=== PATIENT | male | born 1990 | race Caucasian/White ===

== ENCOUNTER 2018-07-28 12:51 | Observation (INO) | payer BC ==
[2018-07-28] MEDS ORDERED: ASPIRIN 81 MG PO STA (13:33)
[2018-07-28] MEDS ORDERED: NITROGLYCERIN OINT 1 INCH/GM PACKET TOPICAL STA (13:33)
--- NOTE | 2018-07-28 13:37 | ED ---
General Adult HPI - General Chief complaint: Recheck/Abnormal Lab/Rx Stated complaint: high blood pressure, "chest issues" Time Seen by Provider: 07/28/18 13:07 Source: patient, RN notes reviewed Mode of arrival: ambulatory Limitations: no limitations - History of Present Illness Initial comments: Patient is a pleasant 28-year-old male presenting to the emergency department with concerns for high blood pressure. Patient is somewhat hesitant to provide history. Family is present and helps provide. Patient does have a history of hypertension and has been on hydrochlorothiazide however has been out of this for the past couple of weeks. Previously patient did have chest discomfort that was controlled with hydrochlorothiazide. Patient has been under more stress the last couple of weeks and has been having some discomfort in his chest. No discomfort at this time. No associated dyspnea or diaphoresis or nausea. Patient did go to urgent care and found high blood pressure and was recommended to come to the emergency department. - Related Data Home Medications Medication Instructions Recorded Confirmed Aspirin 650 mg PO DAILY 07/28/18 07/28/18 Hydrochlorothiazide 12.5 mg PO DAILY 07/28/18 07/28/18 Multivitamins, Thera [Multivitamin 1 tab PO DAILY 07/28/18 07/28/18 (formulary)] [place]-3 Fatty Acids/Fish Oil [Fish 1 tab PO DAILY 07/28/18 07/28/18 Oil 1,000 mg Softgel] Allergies Allergy/AdvReac Type Severity Reaction Status Date / Time No Known Allergies Allergy Verified 07/28/18 14:31 Review of Systems ROS Statement: Those systems with pertinent positive or pertinent negative responses have been documented in the HPI. ROS Other: All systems not noted in ROS Statement are negative. Constitutional: Denies: fever Eyes: Denies: eye pain ENT: Denies: ear pain Respiratory: Denies: cough, dyspnea Cardiovascular: Reports: chest pain (With radiation to left arm) Endocrine: Denies: fatigue Gastrointestinal: Denies: abdominal pain Genitourinary: Denies: dysuria Musculoskeletal: Denies: back pain Skin: Denies: rash Neurological: Denies: weakness Psychiatric: Reports: anxiety Past Medical History Past Medical History: Hypertension History of Any Multi-Drug Resistant Organisms: None Reported Past Surgical History: No Surgical Hx Reported Past Psychological History: No Psychological Hx Reported Smoking Status: Never smoker Past Alcohol Use History: None Reported Past Drug Use History: Marijuana General Exam Limitations: no limitations General appearance: alert, in no apparent distress Head exam: Present: atraumatic Eye exam: Present: normal appearance, PERRL ENT exam: Present: normal oropharynx Neck exam: Present: normal inspection Respiratory exam: Present: normal lung sounds bilaterally. Absent: chest wall tenderness Cardiovascular Exam: Present: regular rate, normal rhythm Expanded Peripheral pulses: 2+: Radial (R), Radial (L), Dorsalis Pedis (R), Dorsalis Pedis (L) GI/Abdominal exam: Present: soft. Absent: tenderness Extremities exam: Present: normal inspection. Absent: pedal edema, calf tenderness Neurological exam: Present: alert Psychiatric exam: Present: normal affect, normal mood Skin exam: Present: normal color Course Vital Signs 07/28/18 07/28/18 07/28/18 12:58 13:28 14:30 Temperature 99.3 F Pulse Rate 80 88 89 Respiratory 18 18 16 Rate Blood Pressure 163/98 142/90 136/80 O2 Sat by Pulse 99 98 97 Oximetry 07/28/18 07/28/18 15:00 15:30 Temperature Pulse Rate 90 93 Respiratory 16 16 Rate Blood Pressure 138/78 131/81 O2 Sat by Pulse 95 95 Oximetry EKG Findings - EKG Comments: EKG Findings:: Normal sinus rhythm 76. SC 154. QRS 98. QT 384. QTC 432. Normal axis. Normal QRS. No acute ST change. Medical Decision Making - Medical Decision Making Patient reevaluated and improved. Case discussed in detail with Dr. Perez, covering for Dr. Werner, who will admit. He did come evaluate the patient. - Lab Data Result diagrams: 07/28/18 13:50 07/28/18 13:50 Lab Results 07/28/18 07/28/18 07/28/18 Range/Units 13:50 13:50 13:50 WBC 11.2 H (3.8-10.6) k/uL RBC 5.37 (4.30-5.90) m/uL Hgb 16.4 (13.0-17.5) gm/dL Hct 48.4 (39.0-53.0) % MCV 90.1 (80.0-100.0) fL MCH 30.5 (25.0-35.0) pg MCHC 33.9 (31.0-37.0) g/dL RDW 12.5 (11.5-15.5) % Plt Count 270 (150-450) k/uL Neutrophils % 87 % Lymphocytes % 8 % Monocytes % 3 % Eosinophils % 1 % Basophils % 0 % Neutrophils # 9.7 H (1.3-7.7) k/uL Lymphocytes # 0.9 L (1.0-4.8) k/uL Monocytes # 0.4 (0-1.0) k/uL Eosinophils # 0.1 (0-0.7) k/uL Basophils # 0.0 (0-0.2) k/uL PT (9.0-12.0) sec INR (<1.2) APTT (22.0-30.0) sec D-Dimer (<0.60) mg/L FEU Sodium 140 (137-145) mmol/L Potassium 4.5 (3.5-5.1) mmol/L Chloride 105 (98-107) mmol/L Carbon Dioxide 26 (22-30) mmol/L Anion Gap 9 mmol/L BUN 9 (9-20) mg/dL Creatinine 0.69 (0.66-1.25) mg/dL Est GFR (CKD-EPI)AfAm >90 (>60 ml/min/1.73 sqM) Est GFR (CKD-EPI)NonAf >90 (>60 ml/min/1.73 sqM) Glucose 103 H (74-99) mg/dL Calcium 9.6 (8.4-10.2) mg/dL Magnesium 1.9 (1.6-2.3) mg/dL Total Bilirubin 0.6 (0.2-1.3) mg/dL AST 41 (17-59) U/L ALT 54 (21-72) U/L Alkaline Phosphatase 74 (38-126) U/L Total Creatine Kinase 208 H (55-170) U/L CK-MB (CK-2) 0.9 (0.0-2.4) ng/mL CK-MB (CK-2) Rel Index 0.4 Troponin I <0.012 (0.000-0.034) ng/mL Total Protein 7.4 (6.3-8.2) g/dL Albumin 4.2 (3.5-5.0) g/dL 07/28/18 Range/Units 13:50 WBC (3.8-10.6) k/uL RBC (4.30-5.90) m/uL Hgb (13.0-17.5) gm/dL Hct (39.0-53.0) % MCV (80.0-100.0) fL MCH (25.0-35.0) pg MCHC (31.0-37.0) g/dL RDW (11.5-15.5) % Plt Count (150-450) k/uL Neutrophils % % Lymphocytes % % Monocytes % % Eosinophils % % Basophils % % Neutrophils # (1.3-7.7) k/uL Lymphocytes # (1.0-4.8) k/uL Monocytes # (0-1.0) k/uL Eosinophils # (0-0.7) k/uL Basophils # (0-0.2) k/uL PT 10.2 (9.0-12.0) sec INR 0.9 (<1.2) APTT 26.5 (22.0-30.0) sec D-Dimer 0.31 (<0.60) mg/L FEU Sodium (137-145) mmol/L Potassium (3.5-5.1) mmol/L Chloride (98-107) mmol/L Carbon Dioxide (22-30) mmol/L Anion Gap mmol/L BUN (9-20) mg/dL Creatinine (0.66-1.25) mg/dL Est GFR (CKD-EPI)AfAm (>60 ml/min/1.73 sqM) Est GFR (CKD-EPI)NonAf (>60 ml/min/1.73 sqM) Glucose (74-99) mg/dL Calcium (8.4-10.2) mg/dL Magnesium (1.6-2.3) mg/dL Total Bilirubin (0.2-1.3) mg/dL AST (17-59) U/L ALT (21-72) U/L Alkaline Phosphatase (38-126) U/L Total Creatine Kinase (55-170) U/L CK-MB (CK-2) (0.0-2.4) ng/mL CK-MB (CK-2) Rel Index Troponin I (0.000-0.034) ng/mL Total Protein (6.3-8.2) g/dL Albumin (3.5-5.0) g/dL - Radiology Data Radiology results: image reviewed (Chest x-ray reveals no acute process) Disposition Clinical Impression: Chest pain, Hypertension Disposition: ADMITTED IP TO THIS HOSP Is patient prescribed a controlled substance at d/c from ED?: No Referrals: Karyn Overton MD [Primary Care Provider] - 1-2 days Decision Time: 16:01
[2018-07-28 14:21] LABS: Basophils % (A) 0 %; Eosinophils # (A) 0.1 k/uL (0-0.7); Eosinophils % (A) 1 %; HCT 48.4 % (39.0-53.0); HGB 16.4 gm/dL (13.0-17.5); Lymphocytes # (A) 0.9 k/uL (1.0-4.8); Lymphocytes % (A) 8 %; MCH 30.5 pg (25.0-35.0); MCHC 33.9 g/dL (31.0-37.0); MCV 90.1 fL (80.0-100.0); Mean Platelet Volume 6.7; Monocytes # (A) 0.4 k/uL (0-1.0); Monocytes % (A) 3 %; Neutrophils # (A) 9.7 k/uL (1.3-7.7); Neutrophils % (A) 87 %; Platelet Count 270 k/uL (150-450); RBC 5.37 m/uL (4.30-5.90); RDW 12.5 % (11.5-15.5); WBC 11.2 k/uL (3.8-10.6)
--- NOTE | 2018-07-28 14:21 | XR ---
EXAMINATION TYPE: XR chest 2V DATE OF EXAM: 07/28/2018 COMPARISON: NONE HISTORY: Chest pain TECHNIQUE: Frontal and lateral views of the chest are obtained. FINDINGS: There is no focal air space opacity, pleural effusion, or pneumothorax seen. The cardiac silhouette size is within normal limits. The osseous structures are intact. There are overlying car diac leads. IMPRESSION: No acute cardiopulmonary process.
[2018-07-28 14:34] LABS: ALT 54 U/L (21-72); AST 41 U/L (17-59); Albumin 4.2 g/dL (3.5-5.0); Alkaline Phosphatase 74 U/L (38-126); Anion Gap 9 mmol/L; Blood Urea Nitrogen 9 mg/dL (9-20); Calcium 9.6 mg/dL (8.4-10.2); Carbon Dioxide 26 mmol/L (22-30); Chloride 105 mmol/L (98-107); D-Dimer 0.31 mg/L FEU (<0.60); Glucose 103 mg/dL (74-99); INR 0.9 (<1.2); Magnesium 1.9 mg/dL (1.6-2.3); Partial Thromboplastin Time 26.5 sec (22.0-30.0); Potassium 4.5 mmol/L (3.5-5.1); Prothrombin Time 10.2 sec (9.0-12.0); Sodium 140 mmol/L (137-145); Total Bilirubin 0.6 mg/dL (0.2-1.3); Total Protein 7.4 g/dL (6.3-8.2)
[2018-07-28] MEDS ORDERED: ACETAMINOPHEN TAB 325 MG TAB PO STA (14:37)
[2018-07-28 14:45] LABS: Creatine Kinase 208 U/L (55-170)
[2018-07-28] MEDS ORDERED: ATENOLOL 25 MG TAB PO STA (14:47)
[2018-07-28 14:59] LABS: Creatine Kinase MB 0.9 ng/mL (0.0-2.4); Troponin I <0.012 ng/mL (0.000-0.034)
[2018-07-28] MEDS ORDERED: NITROGLYCERIN SL TABS 0.4 MG TAB SUBLINGUAL PRN (16:01)
[2018-07-28 16:18] VITALS: RESP 18
--- NOTE | 2018-07-28 16:26 | P.HPIM ---
History of Present Illness H&P Date: 07/28/18 Chief Complaint: Chest pain This is a 28-year-old male patient of Dr. Overton. She presented to the emergency room with complaints of chest pain that radiated down to left arm. Patient also complaining of high blood pressure. Patient does have a known medical history of hypertension which she takes hydrochlorothiazide but has been off the past couple weeks. Patient does report he's been under more stress over the last couple weeks and has been having intermittent chest discomfort. Patient denies any nausea or vomiting with episodes. Patient denies any shortness of breath. Patient does have a significant family history of grandfather requiring coronary artery bypass graft surgery. Patient does state he used to smoke but has stopped many years ago. Does report that he smokes marijuana. Patient does report occasional alcohol use. Patient does report that he has had EKG completed by is primary care provider but denies any history of 2-D echo or stress test being completed. Blood Pressure currently well-controlled. EKG completed showing normal sinus rhythm with sinus arrhythmia. Normal EKG. Chest x-ray completed completed showing no acute cardiopulmonary process. At this time patient denies chest pain or shortness breath. Patient denies any urinary burning or frequency. Patient denies nausea vomiting or diarrhea. Review of Systems Please refer to HPI otherwise unremarkable Past Medical History Past Medical History: Hypertension History of Any Multi-Drug Resistant Organisms: None Reported Past Surgical History: No Surgical Hx Reported Past Psychological History: No Psychological Hx Reported Smoking Status: Never smoker Past Alcohol Use History: None Reported Past Drug Use History: Marijuana Medications and Allergies Home Medications Medication Instructions Recorded Confirmed Type Aspirin 650 mg PO DAILY 07/28/18 07/28/18 History Hydrochlorothiazide 12.5 mg PO DAILY 07/28/18 07/28/18 History Multivitamins, Thera [Multivitamin 1 tab PO DAILY 07/28/18 07/28/18 History (formulary)] [place]-3 Fatty Acids/Fish Oil [Fish 1 tab PO DAILY 07/28/18 07/28/18 History Oil 1,000 mg Softgel] Allergies Allergy/AdvReac Type Severity Reaction Status Date / Time No Known Allergies Allergy Verified 07/28/18 14:31 Physical Exam Vitals: Vital Signs Temp Pulse Resp BP Pulse Ox 07/28/18 15:30 93 16 131/81 95 07/28/18 15:00 90 16 138/78 95 12/05/18 14:30 89 16 136/80 97 07/28/18 13:28 88 18 142/90 98 07/28/18 12:58 99.3 F 80 18 163/98 99 Intake and Output 07/28/18 07/28/18 07/28/18 06:59 14:59 22:59 Other: Weight 154.675 kg Head normocephalic Neck supple Lungs clear to auscultation bilaterally no wheezing or crackles Heart regular rate and rhythm S1-S2, no rub or gallop Abdomen is soft nontender nondistended positive bowel sounds no hepatosplenomegaly Extremities no edema Neuro alert and orientated to 3 Results CBC & Chem 7: 07/28/18 13:50 07/28/18 13:50 Labs: Abnormal Lab Results - Last 24 Hours (Table) 07/28/18 07/28/18 07/28/18 Range/Units 13:50 13:50 13:50 WBC 11.2 H (3.8-10.6) k/uL Neutrophils # 9.7 H (1.3-7.7) k/uL Lymphocytes # 0.9 L (1.0-4.8) k/uL Glucose 103 H (74-99) mg/dL Total Creatine Kinase 208 H (55-170) U/L Assessment and Plan Assessment: 1. Chest pain. Initial troponin negative. EKG showing normal sinus rhythm with sinus arrhythmia. Chest x-ray completed showing no acute cardiopulmonary process. Cardiology services have been consulted. Lipid panel ordered. Cardiac enzymes ordered 2. essential hypertension. Patient managed on hydrochlorothiazide 3. Leukocytosis. Blood cell 11.2. Patient denies any complaints at this time. Will order recheck in a.m. 4. Obesity. BMI 43.8 5. Marijuana use Time with Patient: Greater than 30 (Greater than 60% of the total time spent in counseling and coordination of care. I performed an examination of the patient and discussed their management with the Nurse Practitioner. I have reviewed the Nurse Practitioner's notes and agree with the documented findings and plan of care)
[2018-07-28] MEDS ORDERED: ACETAMINOPHEN TAB 325 MG TAB PO PRN (18:56)
[2018-07-28 19:29] LABS: Creatine Kinase 185 U/L (55-170)
[2018-07-28 19:42] LABS: Creatine Kinase MB 0.8 ng/mL (0.0-2.4); Troponin I <0.012 ng/mL (0.000-0.034)
[2018-07-28] MEDS: NITROGLYCERIN OINT 1 INCH/GM PACKET TOPICAL SCH (20:26)
[2018-07-29] MEDS: NITROGLYCERIN OINT 1 INCH/GM PACKET TOPICAL SCH ×2 (00:57→05:44)
[2018-07-29 02:20] LABS: Basophils % (A) 0 %; Eosinophils # (A) 0.2 k/uL (0-0.7); Eosinophils % (A) 2 %; HCT 46.5 % (39.0-53.0); HGB 15.3 gm/dL (13.0-17.5); Lymphocytes % (A) 27 %; MCH 29.7 pg (25.0-35.0); MCV 90.2 fL (80.0-100.0); Monocytes # (A) 0.6 k/uL (0-1.0); Monocytes % (A) 5 %; Neutrophils # (A) 7.3 k/uL (1.3-7.7); Neutrophils % (A) 65 %; Platelet Count 248 k/uL (150-450); RBC 5.16 m/uL (4.30-5.90); RDW 12.5 % (11.5-15.5); WBC 11.3 k/uL (3.8-10.6)
[2018-07-29 02:34] LABS: ALT 47 U/L (21-72); AST 39 U/L (17-59); Albumin 3.9 g/dL (3.5-5.0); Alkaline Phosphatase 58 U/L (38-126); Anion Gap 9 mmol/L; Blood Urea Nitrogen 8 mg/dL (9-20); Calcium 9.5 mg/dL (8.4-10.2); Carbon Dioxide 25 mmol/L (22-30); Chloride 107 mmol/L (98-107); Cholesterol 154 mg/dL (<200); Glucose 97 mg/dL (74-99); HDL Cholesterol 37 mg/dL (40-60); LDL Cholesterol,Calculated 100 mg/dL (0-99); Potassium 4.4 mmol/L (3.5-5.1); Sodium 141 mmol/L (137-145); Total Bilirubin 0.6 mg/dL (0.2-1.3); Total Protein 6.9 g/dL (6.3-8.2); Triglycerides 86 mg/dL (<150)
[2018-07-29 02:39] LABS: Creatine Kinase 179 U/L (55-170)
[2018-07-29 02:52] LABS: Creatine Kinase MB 0.8 ng/mL (0.0-2.4); Troponin I <0.012 ng/mL (0.000-0.034)
--- NOTE | 2018-07-29 07:47 | CONS ---
CONSULTATION Mr. Luna is a 28-year-old male with a known history of hypertension who has not been taking his hydrochlorothiazide, history of marijuana use, who presented to the emergency room with symptoms of chest discomfort and left arm tingling. His discomfort started the night before last after he had a BLT. It was not associated with any significant dyspnea, dizziness or palpitation. The patient denies any prior cardiac history. He is not very active physically. He has no history of PND, orthopnea, or peripheral edema. No dizziness, palpitation, or syncope. His coronary risk factors are remarkable for history of hypertension. He is nondiabetic. No documented hyperlipidemia. His medications were none at home. He was supposed to take hydrochlorothiazide. REVIEW OF SYSTEMS: RESPIRATORY SYSTEM: He has no recent wheezing or cough. No history of obstructive lung disease. GI SYSTEM: No recent GI bleeding. No peptic ulcer disease. SYSTEM: No dysuria or hematuria. NERVOUS SYSTEM: No stroke or seizure. PHYSICAL EXAMINATION: He is a 28-year-old male, alert, oriented, in no apparent distress. Overweight. Blood pressure 143/80 with the heart rate in the 70s. HEAD: Normocephalic. EYES: Sclerae anicteric. NECK: Good carotid upstroke. No bruit. No jugular venous distention. LUNGS: Clear to auscultation. HEART: Regular rate and rhythm. S1, S2. No S3. No S4. No murmur or rub. ABDOMEN: Soft, nontender, obese. Positive bowel sounds. No organomegaly. EXTREMITIES: No edema. Intact distal pulses. LAB DATA: Lab data revealed troponin less than 0.012 for 3 samples. BUN and creatinine of 8 and 0.69. Cholesterol 154 with an LDL of 100. Hemoglobin 15.3, white blood cell of 11.3. EKG revealed a sinus mechanism, normal axis and intervals with no acute changes. Chest x-ray shows no acute infiltrate. IMPRESSION: 1. Chest discomfort atypical for ischemic heart disease probably noncardiac. 2. Hypertension. 3. Obesity. 4. History of marijuana use. RECOMMENDATION: I would recommend to proceed with stress echocardiogram and a transthoracic echo. If there is no evidence of inducible ischemia then no further cardiac workup will be needed. Thank you for this consult. We will follow with you. MMODL / IJN: [id number] /
[2018-07-29] MEDS ORDERED: HYDROCHLOROTHIAZIDE 12.5 MG CAP PO SCH (09:00)
[2018-07-29] MEDS ORDERED: HYDROCHLOROTHIAZIDE 25 MG TAB PO SCH (09:00)
[2018-07-29] MEDS ORDERED: ASPIRIN 325 MG TAB PO SCH (09:00)
--- NOTE | 2018-07-29 11:11 | ECHOF ---
Referral Reason:cp MEASUREMENTS -------- HEIGHT: 182.9 cm WEIGHT: 152.4 kg BP: 143/87 RVIDd: 3.9 cm (< 3.3) IVSd: 1.4 cm (0.6 - 1.1) LVIDd: 4.9 cm (3.9 - 5.3) LVPWd: 1.3 cm (0.6 - 1.1) IVSs: 1.5 cm LVIDs: 3.1 cm LVPWs: 1.5 cm LA Diam: 3.5 cm (2.7 - 3.8) LAESV Index (A-L): 15.17 ml/m Ao Diam: 3.3 cm (2.0 - 3.7) AV Cusp: 2.3 cm (1.5 - 2.6) LA Diam: 3.7 cm (2.7 - 3.8) MV EXCURSION: 23.254 mm (> 18.000) MV EF SLOPE: 118 mm/s (70 - 150) EPSS: 0.1 cm MV E Tu: 0.79 m/s MV DecT: 214 ms MV A Tu: 0.72 m/s MV E/A Ratio: 1.11 RAP: 5.00 mmHg RVSP: 15.08 mmHg FINDINGS -------- Sinus rhythm. This was a technically difficult study with suboptimal views. This was a techncally difficult study with suboptimal views, , Definity utilized for enhancement of images. The left ventricular size is normal. There is moderate concentric left ventricular hypertrophy. O verall left ventricular systolic function is normal with, an EF between 55 - 60 %. The right ventricle is moderately enlarged. The left atrial size is normal. The right atrial size is normal. xx ml of Lumason was utilized for enhancement of images. The aortic valve is trileaflet, and appears structurally normal. No aortic stenosis or regurgitation. The mitral valve is normal. Mild mitral regurgitation is present. Mild tricuspid regurgitation present. Right ventricular systolic pressure is normal at < 35 mmHg. The right ventricular systolic pressure, as measured by Doppler, is 15.08mmHg. The pulmonic valve was not well visualized. There is no pulmonic regurgitation present. The aortic root size is normal. There is no pericardial effusion. CONCLUSIONS -------- 1. Sinus rhythm. 2. This was a techncally difficult study with suboptimal views, , Definity utilized for enhancement o f images. 3. The left ventricular size is normal. 4. There is moderate concentric left ventricular hypertrophy. 5. Overall left ventricular systolic function is normal with, an EF between 55 - 60 %. 6. The right ventricle is moderately enlarged. 7. The left atrial size is normal. 8. xx ml of Lumason was utilized for enhancement of images. 9. The aortic valve is trileaflet, and appears structurally normal. No aortic stenosis or regurgitati on. 10. Mild mitral regurgitation is present. 11. Mild tricuspid regurgitation present. 12. Right ventricular systolic pressure is normal at < 35 mmHg. 13. The pulmonic valve was not well visualized. 14. There is no pulmonic regurgitation present. 15. The aortic root size is normal. 16. There is no pericardial effusion. OAKES MACHINE OPERATOR: Mary Padilla RDCS
[2018-07-29 11:51] VITALS: BP 139/96; PULSE 109; TEMP 98.1
--- NOTE | 2018-07-29 13:44 | ECHOS ---
STRESS ECHOCARDIOGRAM DATE OF SERVICE: 07/29/2018 INDICATIONS: Chest pain. MEDICATIONS: BASELINE HEART RATE: 84 BASELINE BLOOD PRESSURE: 136/81 MAXIMUM HEART RATE: 170 MAXIMUM BLOOD PRESSURE: 178/58 85% MPHR: 162 100% MPHR: 191 METS: 9.0 MAXIMUM STAGE REACHED: II TOTAL EXERCISE TIME: 8 minutes 6 seconds CLINICAL INFORMATION: Baseline rhythm is sinus mechanism, rate of 84, normal axis and intervals, normal electrocardiogram. Baseline blood pressure 136/81 mmHg. Patient exercised on Andrey protocol for 8 minutes 6 seconds reaching a peak rate of 170 beats per minute which is equal to 89% maximum predicted heart rate. Peak blood pressure 178/58 mmHg. Test was terminated secondary to fatigue. There is no chest pain. Electrocardiograph monitoring revealed no evidence of diagnostic ischemic ST deviation. Baseline echocardiogram revealed normal wall thickening and motion. At peak exercise, there was normal wall motion augmentation with no hypokinesis or dyskinesis. CONCLUSION: 1. Average exercise tolerance with normal electrocardiograph response to exercise. 2. Normal stress echocardiogram with no evidence of stress induced ischemia. MMODL / IJN: [id number] /
--- NOTE | 2018-07-29 14:10 | P.DS ---
Providers Date of admission: 07/28/18 16:01 Expected date of discharge: 07/29/18 Attending physician: Manuel Perez Consults: 07/28/18 16:01 Consult Physician Urgent Consulting Provider: oJhn Espinoza Consult Reason/Comments: cp, htn Do you want consulting provider notified?: Yes Primary care physician: Karyn Overton Hospital Course: Discharge diagnosis 1. Chest pain. Initial troponin negative. EKG showing normal sinus rhythm with sinus arrhythmia. Chest x-ray completed showing no acute cardiopulmonary process. Cardiology services have been consulted. Lipid panel ordered. troponins negative. Chest was completed showing average exercise tolerance with normal electrocardiographic response to exercise. Normal stress echocardiogram with no evidence of stress-induced ischemia. Discussed with cardiology services. Patient has been cleared for discharge 2. essential hypertension. Patient managed on hydrochlorothiazide 3. Leukocytosis. Blood cell 11.2. Patient denies any complaints at this time. White blood cell 11.3. At this time patient denies any signs or symptoms of infection. Patient advised to follow-up closely with PCP in regards to any signs that might appear 4. Obesity. BMI 43.8 5. Marijuana use Hospital Course This is a 28-year-old male patient of Dr. Overton. She presented to the emergency room with complaints of chest pain that radiated down to left arm. Patient also complaining of high blood pressure. Patient does have a known medical history of hypertension which she takes hydrochlorothiazide but has been off the past couple weeks. Patient does report he's been under more stress over the last couple weeks and has been having intermittent chest discomfort. Patient denies any nausea or vomiting with episodes. Patient denies any shortness of breath. Patient does have a significant family history of grandfather requiring coronary artery bypass graft surgery. Patient does state he used to smoke but has stopped many years ago. Does report that he smokes marijuana. Patient does report occasional alcohol use. Patient does report that he has had EKG completed by is primary care provider but denies any history of 2-D echo or stress test being completed. Blood Pressure currently well-controlled. EKG completed showing normal sinus rhythm with sinus arrhythmia. Normal EKG. Chest x-ray completed completed showing no acute cardiopulmonary process. At this time patient denies chest pain or shortness breath. Patient denies any urinary burning or frequency. Patient denies nausea vomiting or diarrhea. Stress test completed patient has been cleared for discharge from cardiology cardiology. Will order repeat CBC in 1 week to assess WBC. Advised patient to follow-up closely with PCP. At this time patient denies chest pain or shortness breath. Patient denies nausea vomiting or diarrhea. Patient denies any urinary burning or frequency. I performed an examination of the patient and discussed their management with the Nurse Practitioner. I have reviewed the Nurse Practitioner's notes and agree with the documented findings and plan of care Patient Condition at Discharge: Stable Plan - Discharge Summary Discharge Rx Participant: No New Discharge Prescriptions: No Action [place]-3 Fatty Acids/Fish Oil [Fish Oil 1,000 mg Softgel] 1 tab PO DAILY Multivitamins, Thera [Multivitamin (formulary)] 1 tab PO DAILY Aspirin 650 mg PO DAILY Hydrochlorothiazide 12.5 mg PO DAILY Discharge Medication List Aspirin 650 mg PO DAILY 07/28/18 [History] Hydrochlorothiazide 12.5 mg PO DAILY 07/28/18 [History] Multivitamins, Thera [Multivitamin (formulary)] 1 tab PO DAILY 07/28/18 [History ] [place]-3 Fatty Acids/Fish Oil [Fish Oil 1,000 mg Softgel] 1 tab PO DAILY [History] Follow up Appointment(s)/Referral(s): Karyn Overton MD [Primary Care Provider] - 1-2 days
== END 2018-07-29 14:30 | disposition home or self-care (01) ==
LOC: EC 12:51 → INTOOBSV 16:01 → 1SOBS 16:01
PROVIDERS: ADMIT Internal Medicine; ATTEND Internal Medicine
DX: R07.89 Other chest pain (principal); I10 Essential (primary) hypertension; E66.9 Obesity, unspecified; Z68.41 Body mass index [BMI] 40.0-44.9, adult; D72.829 Elevated white blood cell count, unspecified; F12.90 Cannabis use, unspecified, uncomplicated; T50.2X6A Underdosing of carbonic-anhydrase inhibitors, benzothiadiazides and other diuretics, initial encounter; Z82.49 Family history of ischemic heart disease and other diseases of the circulatory system; Z87.891 Personal history of nicotine dependence; Z79.82 Long term (current) use of aspirin
CPT/HCPCS: 99284; 36415; 93005; 93306; 93351; 85379; 80061; 80053 ×2; 82550 ×2; 82553 ×2; 83735; 84484 ×2; 85025 ×2; 85610; 85730; 71046; G0378 ×2; Q9950

== ENCOUNTER → 2019-01-24 | Outpatient (CLI) | payer MEDICAID ==
--- NOTE | 2019-01-24 10:01 | US ---
EXAMINATION TYPE: US liver DATE OF EXAM: 01/24/2019 COMPARISON: NONE CLINICAL HISTORY: I51.7 Cardiomegaly. Elevated liver enzymes. EXAM MEASUREMENTS: Liver Length: 17.4 cm Gallbladder Wall: 0.2 cm CBD: 0.6 cm Right Kidney: 11.5 x 6.1 x 6.8 cm Pancreas: Obscured by bowel gas Liver: There is diffusely heterogenous echotexture of the hepatic parenchyma with diminished visuali zation of the portal triads most commonly relating to hepatic steatosis and limiting evaluation for u nderlying hepatic masses. Gallbladder: No stones seen Evidence for sonographic Encarnacion's sign: no CBD: wnl Right Kidney: No hydronephrosis or masses seen IMPRESSION: Diffusely heterogenous hepatic echotexture, most commonly relates to hepatic steatosis al though can be seen in other etiologies such as hepatitis or congestive colopathy given the provided h istory of cardiomegaly. Correlate with liver function tests results.
--- NOTE | 2019-02-02 11:33 | ECHOF ---
Referral Reason:I51.7 Cardiomegaly MEASUREMENTS -------- HEIGHT: 188.0 cm WEIGHT: 145.1 kg BP: 158/74 RVIDd: 3.5 cm (< 3.3) IVSd: 1.4 cm (0.6 - 1.1) LVIDd: 4.4 cm (3.9 - 5.3) LVPWd: 1.4 cm (0.6 - 1.1) IVSs: 1.7 cm LVIDs: 2.9 cm LVPWs: 1.9 cm LA Diam: 3.7 cm (2.7 - 3.8) LAESV Index (A-L): 18.48 ml/m Ao Diam: 3.2 cm (2.0 - 3.7) AV Cusp: 2.4 cm (1.5 - 2.6) MV EXCURSION: 19.436 mm (> 18.000) MV EF SLOPE: 118 mm/s (70 - 150) EPSS: 0.4 cm MV E Tu: 1.26 m/s MV DecT: 234 ms MV A Tu: 0.86 m/s MV E/A Ratio: 1.47 RAP: 5.00 mmHg RVSP: 24.48 mmHg FINDINGS -------- Sinus rhythm. This was a technically adequate study. The left ventricular size is normal. There is moderate concentric left ventricular hypertrophy. O verall left ventricular systolic function is normal with, an EF between 60 - 65 %. The right ventricle is mildly enlarged. Normal LA size by volume 22+/-6 ml/m2. The right atrium is normal in size. Interatrial and interventricular septum intact. The aortic valve is trileaflet and appears structurally normal. The mitral valve is normal. Mild tricuspid regurgitation present. Right ventricular systolic pressure is normal at < 35 mmHg. Trace/mild (physiologic) pulmonic regurgitation. The aortic root size is normal. Normal inferior vena cava with normal inspiratory collapse consistent with estimated right atrial pre ssure of 5 mmHg. There is no pericardial effusion. CONCLUSIONS -------- 1. Sinus rhythm. 2. This was a technically adequate study. 3. The left ventricular size is normal. 4. There is moderate concentric left ventricular hypertrophy. 5. Overall left ventricular systolic function is normal with, an EF between 60 - 65 %. 6. The right ventricle is mildly enlarged. 7. Normal LA size by volume 22+/-6 ml/m2. 8. The right atrium is normal in size. 9. Interatrial and interventricular septum intact. 10. The aortic valve is trileaflet and appears structurally normal. 11. The mitral valve is normal. 12. Mild tricuspid regurgitation present. 13. Right ventricular systolic pressure is normal at < 35 mmHg. 14. Trace/mild (physiologic) pulmonic regurgitation. 15. The aortic root size is normal. 16. Normal inferior vena cava with normal inspiratory collapse consistent with estimated right atrial pressure of 5 mmHg. 17. There is no pericardial effusion. BOTTOM HOOP DRIVER: Faina Rasmussen RDCS
== END | disposition home or self-care (01) ==
LOC: RADUSWWP 09:22
PROVIDERS: ATTEND Family Medicine
DX: R93.2 Abnormal findings on diagnostic imaging of liver and biliary tract (principal); I07.1 Rheumatic tricuspid insufficiency; I37.1 Nonrheumatic pulmonary valve insufficiency; R74.8 Abnormal levels of other serum enzymes
CPT/HCPCS: 76705; 93306

== ENCOUNTER 2021-01-11 06:05 | Day surgery (SDC) | payer MEDICAID, OTHER ==
[2021-01-09 09:17] VITALS: BMI 36.9
[~2021-01-11 06:05] MED LIST: DEXAMETHASONE SOD PHOSPHATE 4 MG/ML 1 ML VIAL IV ONE; HEPARIN SODIUM,PORCINE/PF 5,000 UNIT/0.5 ML SYRINGE SQ PRN; LACTATED RINGERS 1,000 ML IV SCH; MIDAZOLAM 2 MG/2 ML VIAL IV PRN; ONDANSETRON 4 MG/2 ML VIAL IVP ONE; Pre Op ABX Message 1 EACH MISC MISCELLANE ONE; SCOPOLAMINE 1.5MG/72HR PATCH TRANSDERM ONE
[2021-01-11] MEDS ORDERED: HYDROmorphone 0.5 MG/0.5 ML SYRINGE IVP PRN (07:00)
[2021-01-11] MEDS ORDERED: LIDOCAINE 1% (10MG/ML) FOR IV START INTRADERMA ONE (07:05)
--- NOTE | 2021-01-11 07:18 | P.GSHP ---
History of Present Illness H&P Date: 01/11/21 CHIEF COMPLAINT: Back mass HISTORY OF PRESENT ILLNESS: The patient is a 30 year-old male with history of mass along the mid back. He presents today for surgical excision. PAST MEDICAL HISTORY: Please see list. PAST SURGICAL HISTORY: Please see list. MEDICATIONS: Please see list. ALLERGIES: Please see list. SOCIAL HISTORY: Please see list. FAMILY HISTORY: No reports of Crohn disease or ulcerative colitis. REVIEW OF ORGAN SYSTEMS: CONSTITUTIONAL: No reports of fevers or chills. GI: Denies any blood in stools or constipation. PHYSICAL EXAM: VITAL SIGNS: Stable Musculoskeletal: No clubbing cyanosis or edema SKIN: Mid back lesion 6 cm GENERAL: Well developed and in no acute distress. Pleasant. HEENT: No sclera icterus. Extraocular movements grossly intact. Moist buccal mucosa. Head is atraumatic, normocephalic. Hears conversational speech. No nasal drainage. NECK: Supple without lymphadenopathy. No JV distention. CHEST: Non-labored respirations and equal bilateral excursions. CARDIOVASCULAR: Regular rate and rhythm. Palpable 2+ radial pulses. ABDOMEN: Soft. Non-tender. Nondistended. NEUROLOGIC: No focal or lateralizing signs. PSYCH: Appropriate affect. Alert and oriented to person, place and time. ASSESSMENT: 1. Mid back mass PLAN: 1. Will proceed of excision of subcutaneous tumor along the back. 2. DVT prophylaxis. 3. Antibiotic prophylaxis. 4. Time of recovery, at least one week. Past Medical History Past Medical History: Hypertension, Sleep Apnea/CPAP/BIPAP, Thyroid Disorder History of Any Multi-Drug Resistant Organisms: MRSA Date of last positivie culture/infection: rt arm MDRO Source:: 2007 Past Surgical History: No Surgical Hx Reported Additional Past Surgical History / Comment(s): no reported surguries Past Anesthesia/Blood Transfusion Reactions: No Reported Reaction Additional Past Anesthesia/Blood Transfusion Reaction / Comment(s): "has never recieved any blood transfusions" Smoking Status: Former smoker - Past Family History Mother Family Medical History: No Reported History Father Family Medical History: Hypertension, Thyroid Disorder Medications and Allergies Home Medications Medication Instructions Recorded Confirmed Type Blood Pressure Med 1 tab PO QAM 01/09/21 History Fluticasone Nasal [place] [Flonase 2 spr EA NOSTRIL DAILY 01/09/21 01/09/21 History Nasal [place]] Thyroid Med 1 tab PO QAM 01/09/21 History Allergies Allergy/AdvReac Type Severity Reaction Status Date / Time No Known Allergies Allergy Verified 07/28/18 14:31 Surgical - Exam Vital Signs Temp Pulse Resp BP Pulse Ox 97.8 F 74 18 145/83 99 01/11/21 06:49 01/11/21 06:49 01/11/21 06:49 01/11/21 06:49 01/11/21 06:49
[2021-01-11] MEDS ORDERED: ceFAZolin 3 GM in SODIUM CHLORIDE 0.9% 100 ML IVPB ONE (07:30)
[2021-01-11] MEDS ORDERED: LIDOCAINE 1%-EPI 1:100,000 20 ML VIAL SQ ONE ×2 (07:32→08:12)
[2021-01-11] MEDS ORDERED: ROCURONIUM 10 MG/ML (5 ML VIAL) IV ONE (07:38)
[2021-01-11] MEDS ORDERED: MIDAZOLAM 2 MG/2 ML VIAL ONE (07:38)
[2021-01-11] MEDS ORDERED: PROPOFOL 10 MG/ML 20 ML VIAL IV ONE (07:38)
[2021-01-11] MEDS ORDERED: SUCCINYLCHOLINE CHLORIDE VIAL 200 MG/10 ML VIAL IV ONE (07:38)
[2021-01-11] MEDS ORDERED: fentaNYL (PF) 50 MCG/ML 2 ML AMP ONE (07:38)
[2021-01-11] MEDS ORDERED: LIDOCAINE 1% INJ 10MG/ML (20 ML MDV) ONE (07:38)
[2021-01-11 08:55] VITALS: TEMP 97
--- NOTE | 2021-01-11 08:59 | P.OP ---
Date of Procedure: 01/11/21 Description of Procedure: SURGEON: NORI DOMINGUEZ MD [employer] SPECIALIST: None. PREOPERATIVE DIAGNOSES: 1. Central mid back tumor 2. Hypertensive heart disease 3. Obstructive sleep apnea 4. Morbid obesity due to excess calories, BMI 37.3 5. 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 Fascial central mid back tumor, 7 x 3 cm 2. Hypertensive heart disease 3. Obstructive sleep apnea 4. 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 Excision of fascial central mid back tumor, 7 x 3 cm 2. Complex closure with undermining central mid back incision, 9-cm Anesthesia: GETA, local Estimated Blood Loss (ml): 30 Pathology: other (back mass) Condition: stable Disposition: same day COMPLICATIONS: None. Operative Findings: 1. Excision of fascial central mid back tumor, 7 x 3 cm INDICATIONS: The patient is a 30-year-old male who presents with central mid back tumor. Benefits and risks of surgical intervention were described including bleeding, infection, seroma, pain and recurrence. Informed consent was obtained. DESCRIPTION OR PROCEDURE: In the preoperative area, the area of concern was marked with indelible marker. Patient was brought into the operating room. After general induction, he was positioned in left lateral decubitus position. The back was prepped and draped in a standard sterile fashion with ChloraPrep. Timeout protocol was confirmed with the surgical team regarding the patient's name, procedure to be performed including preoperative medications. DVT prophylaxis was confirmed. A field block was placed of the left lower back. An elliptical transverse incision using #15 blade was made along the marking into the dermis and subcutaneous tissue. Electro-Bovie cautery was used to enter deep tissue of the fascia where cystic tumor with tunneling was removed in total of 7 x 3 x 3 cm. Wide undermining by 3 cm superior and inferior flaps were created using Bovie cautery for the subcutaneous tissue for closure of the incision. 0 Vicryl for the fascia and deep subcutaneous tissue in interrupted fashion. 3-0 Monocryl in a running subcuticular fashion was placed along the dermis. The skin was cleansed and Exofin tape with liquid was applied for a four layer closure. The incision was covered with Optifoam dressing. At the end of the procedure, needle, sponge, and instrument count was verified correct by surgical coordinator. The patient tolerated the procedure well. Plan - Discharge Summary Discharge Rx Participant: No New Discharge Prescriptions: New Ibuprofen [Motrin] 600 mg PO Q8HR PRN #30 tab PRN Reason: Pain Acetaminophen Tab [Tylenol Tab] 1,000 mg PO Q6HR PRN #30 tablet PRN Reason: Pain Continue Fluticasone Nasal [place] [Flonase Nasal [place]] 2 spr EA NOSTRIL DAILY amLODIPine [Norvasc] 5 mg PO DAILY Levothyroxine Sodium 1 tab PO DAILY Discharge Medication List Fluticasone Nasal [place] [Flonase Nasal [place]] 2 spr EA NOSTRIL DAILY 01/09/21 [History] Acetaminophen Tab [Tylenol Tab] 1,000 mg PO Q6HR PRN #30 tablet 01/11/21 [Rx] Ibuprofen [Motrin] 600 mg PO Q8HR PRN #30 tab 01/11/21 [Rx] Levothyroxine Sodium 1 tab PO DAILY 01/11/21 [History] amLODIPine [Norvasc] 5 mg PO DAILY 01/11/21 [History] Follow up Appointment(s)/Referral(s): Nori Dominguez MD [STAFF PHYSICIAN] - 01/17/21 Patient Instructions/Handouts: Excision of Skin Lesion (DC) Activity/Diet/Wound Care/Special Instructions: DO NOT REMOVE DRESSING. See instructions on dressing. NO WIDE MOTIONS OF THE SHOULDERS/ARMS FOR 1 WEEK JANUARY 18. NO BENDING AT THE HIPS WHILE SITTING NO EXTREME STRETCHING OF THE BACK No lifting over 10 pounds in 2 weeks, January 25December shower. No bath tub soaks for two weeksJanuary 25 Diet as tolerated. Discharge Disposition: HOME SELF-CARE
[2021-01-11 09:09] VITALS: RESP 16
[2021-01-11 09:45] VITALS: BP 137/81; PULSE 81
== END 2021-01-11 09:55 | disposition home or self-care (01) ==
LOC: OR 06:05
PROVIDERS: ATTEND Surgery Plastic and Reconstructive Surgery
DX: L72.0 Epidermal cyst (principal); I10 Essential (primary) hypertension; E07.9 Disorder of thyroid, unspecified; G47.33 Obstructive sleep apnea (adult) (pediatric); Z86.14 Personal history of Methicillin resistant Staphylococcus aureus infection; Z87.891 Personal history of nicotine dependence; Z82.49 Family history of ischemic heart disease and other diseases of the circulatory system; Z83.49 Family history of other endocrine, nutritional and metabolic diseases; Z79.899 Other long term (current) drug therapy; Z91.19 Patient's noncompliance with other medical treatment and regimen; I11.9 Hypertensive heart disease without heart failure; E66.01 Morbid (severe) obesity due to excess calories; Z68.37 Body mass index [BMI] 37.0-37.9, adult
CPT/HCPCS: 11406; 13101; 88304; J2250; J0330; J1100; J0690; J2405; J2001; J3010; J2704; J1644; 88305